=== PATIENT | male | born 1985 | race Caucasian/White ===

== ENCOUNTER 2017-11-27 09:40 | Emergency (ER) | payer MEDICAID ==
[~2017-11-27] VITALS: Ht 167.6 cm; Wt 68.0 kg
--- NOTE | 2017-11-27 09:49 | NUR ---
PT IN BED. PT AWAITING MD CONSULT. PT REPORTS 6/10 PAIN AT LAC SITE. AWAITING MD ORDERS. WILL CONTINUE TO MONITOR.
[2017-11-27] MEDS ORDERED: CEPHALEXIN MONOHYDRATE 500 MG CAPSULE PO ONE (10:15)
[2017-11-27] MEDS ORDERED: LET TOPICAL SOLUTION 8 ML UDC TP ONE (10:15)
[2017-11-27] MEDS ORDERED: HYDROCODONE/APAP 5-325MG TABLET PO ONE (10:15)
[2017-11-27] MEDS ORDERED: LET TOPICAL SOLUTION 8 ML UDC ONE (10:25)
--- NOTE | 2017-11-27 10:30 | NUR ---
WOUND IRRIGATION COMPLETED. PT IN BED W/ GRANDMOTHER AT BEDSIDE. PT REPORT NO CHANGE IN LEVEL OF PAIN. CURRENTLY WAITING FOR MD TO REEVALUATE WOUND POST IRRIGATION. WILL CONTINUE TO MONITOR PT'S LEVEL OF PAIN.
[2017-11-27] MEDS ORDERED: HYDROCODONE/APAP 5-325MG TABLET ONE (10:32)
[2017-11-27] MEDS ORDERED: CEPHALEXIN MONOHYDRATE 500 MG CAPSULE ONE (10:32)
[2017-11-27] MEDS ORDERED: LIDOCAINE HCL 1% 20 ML VIAL IJ ONE (11:30)
--- NOTE | 2017-11-27 12:21 | NUR ---
SUTURE COMPLETED BY . PT DISCHARGED W/ GRANDMOTHER. PT INSTRUCTED TO FOLLOW UP WITH PMD. PT GIVEN RX. PT VERBALIZED UNDERSTANDING OF INSTRUCTIONS. PT ABLE TO AMBULATE WITH CRUTCHES. PT DECLINED THE USE OF A WHEELCHAIR.
== END 2017-11-27 12:15 | disposition home or self-care (01) ==
LOC: ER 09:43
DX: S91.311A Laceration without foreign body, right foot, initial encounter (principal); W23.0XXA Caught, crushed, jammed, or pinched between moving objects, initial encounter; Y92.89 Other specified places as the place of occurrence of the external cause; Y93.89 Activity, other specified; Y99.8 Other external cause status
CPT/HCPCS: 73630; A4217; A4663; J3490